=== PATIENT | female | born 1935 | race Caucasian/White ===

== ENCOUNTER → 2018-05-23 | Outpatient (CLI) | payer MEDICARE, BC, MEDICAID ==
[~2018-05-23] MED LIST: ABILIFY 5 MG TAB5 M1 PO; ACETAMINOPHEN325 M1; ACETAMINOPHEN325 M1 PO; ACIDOPHILUS1 EAC3; ACIDOPHILUS1 EAC3 PO; ADULT LOW DOSE81 MG PO; ADVAIR 100-501 EACH INH; ADVAIR 500-501 EACH; ADVAIR 500-501 EACH IH; ADVAIR 500-501 EACH INH; ADVAIR 500-501 EACH PO; ADVAIR HFA115 MCG/21 INH; ADVAIRDISKUS; ALBUTEROL INH; ALBUTEROL2.5 MG/0.1 IH; ALBUTEROL2.5 MG/31; ALBUTEROL2.5 MG/32 IH; ALDACTONE50 MG PO; AMBEREN; AMBIEN 5 MG TABL5 M1 PO; AMOXICILLIN 50500 M1 PO; AMOXICILLIN 50500 MG; ARTIFICIAL TEAR15 M1 OPHTHALMIC; ASPERCREME 1141.7 GM TOP; ASPERCREME 1141.7 GM TP; ASPIRIN EC325 M1 PO; ASPIRIN EC81 M1 PO; ASPIRIN325; ASPIRIN81 M2 PO; ATIVAN0.5 MG PO; AUGMENTIN 875875 MG PO; AZITHROMYCIN 2250 MG PO; BENADRYL ALLE12.5 MG PO; BENADRYL ALLERG25 MG PO; BENADRYL25 MG PO; BICARSIM80 MG; BICARSIM80 MG PO; BISAC-EVAC10 MG RECTAL; BISACODYL SUPP10 MG; BUDEPRION SR100 MG PO; BUDEPRION SR150 MG PO; BUPROPION HCL100 MG PO; BUPROPION XL150 MG PO; CALCIUM; CALCIUM 500 +1 EAC5; CALCIUM 500 +1 EAC6; CALCIUM 600 +1 EAC1 PO; CALCIUM 600 +1 EAC9 PO; CARVEDILOL3.125 MG PO; CARVEDILOL6.25 MG PO; CEFTIN 250 MG250 MG PO; CELEXA10 MG PO; CEPHALEXIN 500500 M3 PO; CIPROFLOXACIN500 M1 PO; CIPROFLOXACIN500 M3; CITRUCEL500 MG PO; COLACE 100 MG100 MG PO; COLACE100 MG; COLACE100 MG PO; COREG CR20 MG PO; COREG PO; COUMADIN; COUMADIN 10MG T10 M1; COUMADIN 10MG T10 M1 PO; COUMADIN 2 MG TA2 M1 PO; COUMADIN 4 MG TA4 M1 PO; COUMADIN PO; COUMADIN7.5 MG; DESYREL; DESYREL50 MG PO; DIOVAN160 MG; DIOVAN160 MG PO; DUCOLAX PO; DUONEB 2.5-0.5 M3 ML INH; EFFEXOR XR150 MG PO; EFFEXOR100 MG; EFFEXOR100 MG PO; ENOXAPARIN80 MG/0.8 SC; EYE DROP15 ML OPHTHALMIC; FERRO-TIME325 MG PO; FERROUS GLUCON325 M4; FERROUS SULFAT325 M1; FERROUS SULFAT325 M1 PO; FLEET ENEMA118 ML; FLONASE 0.05%50 MCG NASAL; FOSAMAX 70 MG T70 M1; FOSAMAX 70 MG T70 M1 PO; FOSAMAX 70 MG T70 MG PO; FUROSEMIDE 20 M20 M1 PO; FUROSEMIDE 40 M40 M1 PO; GLUCAGEN1 M2 SUBQ; GLYCOLAX POWDER17 G1 PO; GLYCOLAX17 GM; GLYCOLAX255 GM PO; IBUPROFEN 600600 M1 PO; IMDUR 30 MG TAB30 M1; IMDUR 30 MG TAB30 M1 PO; IMODIUM ADVANC1 EAC1; IMODIUM ADVANC1 EAC1 PO; IRON325 PO; ISOSORBIDE DINI30 MG; JANTOVEN7.5 MG PO; K-DUR 20 MEQ T20 MEQ; K-DUR 20 MEQ T20 MEQ PO; LASIX 20 MG TAB20 MG; LASIX 20 MG TAB20 MG PO; LASIX 40 MG TAB40 M1; LASIX 40 MG TAB40 M1 PO; LASIX 40 MG TAB40 M2 PO; LEVAQUIN 250 M250 MG PO; LEVOTHROID PO; LEVOTHYROXINE0.05 MG; LEVOXYL75 MCG PO; LOPERAMIDE 2 MG2 M1; LOPERAMIDE 2 MG2 M1 PO; LOVASTAT20; LOVASTAT20 PO; LOVASTAT40 PO; LOVASTATIN PO; LOW DOSE ASPIRI81 M1; MELATONIN3 MG PO; METAMUCIL0.52 GM PO; MEVACOR40 MG PO; MIRALAX255 GM; MIRALAX255 GM PO; MOM; MOM PO; MONTELUKAST SOD10 MG PO; MUCINEX TA600 MG/TA1 PO; MUCINEX TA600 MG/TAB; MUCINEX600 MG PO; MULTIVITAMINS; MULTIVITAMINS PO; NEPHROCAPS SOFT1 CAP; NEPHROCAPS SOFT1 CAP PO; NEXIUM40 MG; NITROQUICK0.4 MG SL; NITROSTAT0.4 M1 SL; NITROSTAT0.4 MG SL; NORVASC 5 MG TAB5 MG; NORVASC 5 MG TAB5 MG PO; NORVASC10 MG PO; OCEAN45 ML NASAL; OCTREOTIDE100 MCG/3 SC; OMEPRAZOLE PO; OMEPRAZOLE20 M2 PO; OMEPRAZOLE20 MG; OMEPRAZOLE40 MG PO; OPTIVE EYE DROP30 ML INTRAOCULR; OS-CAL 500+D C1 EACH PO; OXCARBAZEPINE600 MG; OXYBUTYNIN 5 MG5 M1 PO; OXYGEN 2L/NC; OXYGEN PRN; PHENERGAN 25 MG25 M1 PO; POTASSIUM20; POTASSIUM20 PO; PREDNISONE 10 M10 MG PO; PRILOSEC 20 MG20 MG; PRILOSEC 20 MG20 MG PO; PROAIR HFA8.5 GM; PROAIR HFA8.5 GM IH; PROAIR HFA8.5 GM INH; PROTONIX40 M2 PO; PROVENTIL; PROVENTIL HFA6.7 G1 IH; PROVENTIL HFA6.7 G1 INH; PROVENTIL INH; REFRESH5 ML INTRAOCULR; RENAL SOFTGEL1 MG; ROBITUSSIN COU118 M1 PO; SALINE NASAL SPRAY; SEE COMMENTS; SENNA S TABLET1 EACH PO; SENNA SYRU8.8 MG/5 M PO; SEROQUEL 25 MG25 MG PO; SIMETHICON CHEW80 M1 PO; SLOW MAG 64 MG; SLOW-MAG64 MG PO; SPIRIVA; SPIRIVA IH; SPIRIVA INH; SPIRONOLACTONE50 MG PO; STERILE SALINE126 ML NASAL; SYNTHROID50 MCG; SYNTHROID50 MCG PO; SYNTHROID75 MCG PO; TESSALON PERLE100 MG; TESSALON PERLE100 MG PO; TIROSINT75 MCG PO; TOPAMAX25 M1 PO; TRAMADOL 50 MG50 MG; TRAMADOL 50 MG50 MG PO; TRAZODONE HCL50 MG PO; TRILEPTAL 300300 MG; TRILEPTAL 300300 MG PO; TRILEPTAL600 MG; TRILEPTAL600 MG PO; TRIPLE ANTIBI28.4 G2 TOP; ULTRAM 50MG TAB50 MG; ULTRAM 50MG TAB50 MG PO; VALIUM2 MG; VISINE15 ML; VITAMIN C + RO500 MG PO; VITAMIN C120 GM; VITAMIN D1000 UNI1 PO; VITAMINC500 PO; WELLBUTRIN 100100 MG PO; WELLBUTRIN SR150 MG PO; WELLBUTRIN XL150 M1; WELLBUTRIN XL150 M1 PO; XENADERM OINTME30 GM; XENADERM OINTME30 GM TOP; XENADERM OINTME30 GM TP; XOPENEX0.63 MG/3 IH; ZINC CHELATE50 MG; ZPAK PO; [UNRECOGNIZED DRUG - OTHER] TOP
--- NOTE | 2018-05-23 18:27 | 2DMMODE ---
[place] [address] 2 D/M-MODE ECHOCARDIOGRAM Name: DARIN WHITNEY Room: [facility]#: [id number] Admission: 05/23/18 Attend Phys: Federico Crockett, Discharge: Date of : 35 Date of Service: 05/23/18 1827 Report #: [id number] THIS REPORT FOR: //name// APPROVED REPORT Study performed: 05/23/2018 10:25:59 EXAM: Comprehensive 2D, Doppler, and color-flow Echocardiogram Patient Location: Out-Patient Status: routine BSA: 1.74 HR: 65 bpm BP: 110/82 mmHg Other Information Study Quality: Good Indications Congestive Heart Failure Aortic valve replacement, Mitral valve replacement 2D Dimensions LVEF(%): 51.36 (>50%) IVSd: 12.83 (7-11mm) LVOT Diam: 20.91 (18-24mm) LVDd: 46.45 mm PWd: 10.89 (7-11mm) Ascending Ao: 27.67 (22-36mm) LVDs: 34.29 (25-40mm) Aortic Root: 23.16 mm Koehler's LVEF: 51.36 % Volumes Left Atrial Volume (Systole) LA ESV Index: 24.70 mL/m2 Aortic Valve AoV Peak Mahesh.: 2.32 m/s AO Peak Gr.: 21.57 mmHg LVOT Max P.02 mmHg AO Mean Gr.: 13.04 mmHg LVOT Mean P.47 mmHg LVOT Max V: 0.87 m/s AO V2 VTI: 55.13 cm LVOT Mean V: 0.56 m/s BARRY (VTI): 1.79 cm2 LVOT V1 VTI: 28.72 cm Mitral Valve MV Peak Gr.: 12.22 [place] [address] 2 D/M-MODE ECHOCARDIOGRAM Name: DARIN WHITNEY Room: [facility]#: [id number] Admission: 05/23/18 Attend Phys: Federico Crockett, Discharge: Date of : 35 Date of Service: 05/23/18 1827 Report #: [id number] MV Mean Gr.: 4.20 mmHg E/A Ratio: 1.54 MV Decel. Time: 248.63 ms MV E Max Mahesh.: 1.60 m/s MV PHT: 72.10 ms MVA (PHT): 3.05 cm2 TDI E/Lateral E': 22.86 E/Medial E': 26.67 Medial E' Mahesh.: 0.06 m/s Lateral E' Mahesh.: 0.07 m/s Pulmonary Valve PV Peak Mahesh.: 1.24 m/s PV Peak Gr.: 6.19 mmHg Tricuspid Valve RAP Estimate: 5.00 mmHg TR Peak Gr.: 33.85 mmHg RVSP: 38.85 mmHg PA Pressure: 38.85 mmHg Left Ventricle The left ventricle is normal size. There is normal LV segmental wall motion. There is normal left ventricular wall thickness. Left ventricular systolic function is normal. The left ventricular ejection fraction is within the normal range. LVEF is 55-60%. The left ventricular diastolic function is normal. Right Ventricle The right ventricle is normal size. The right ventricular systolic function is normal. Atria The left atrium size is normal. The right atrium size is normal. Aortic Valve Bioprosthetic aortic valve is present. No aortic regurgitation is present. Mild aortic stenosis. Mitral Valve There is a mechanical mitral valve. There is no mitral valve regurgitation noted. No evidence of mitral valve stenosis. Tricuspid Valve The tricuspid valve is normal in structure. Mild [place] [address] 2 D/M-MODE ECHOCARDIOGRAM Name: DARIN WHITNEY Room: [facility]#: [id number] Admission: 05/23/18 Attend Phys: Federico Crockett, Discharge: Date of : 35 Date of Service: 05/23/18 1827 Report #: [id number] Pulmonic Valve The pulmonary valve is normal in structure. There is no pulmonic valvular regurgitation. Great Vessels The aortic root is normal in size. IVC is normal in size and collapses with >50% inspiration Pericardium There is no pericardial effusion. <Conclusion> The left ventricle is normal size. There is normal left ventricular wall thickness. Left ventricular systolic function is normal. The left ventricular ejection fraction is within the normal range. LVEF is 55-60%. The left ventricular diastolic function is normal. The right ventricle is normal size. The left atrium size is normal. Bioprosthetic aortic valve is present. No aortic regurgitation is present. Mild aortic stenosis. There is a mechanical mitral valve. There is no mitral valve regurgitation noted. No evidence of mitral valve stenosis. The tricuspid valve is normal in structure. Mild tricuspid regurgitation. There is no pericardial effusion. There is normal LV segmental wall motion. <ELECTRONICALLY SIGNED> By: Carlos Eduardo Edgar MD, FACC 05/23/181826 26 26 Carlos Eduardo Edgar MD, FACC /INF
== END ==
LOC: M.CRD 10:00
DX: Z12.31 Encounter for screening mammogram for malignant neoplasm of breast (principal); I07.1 Rheumatic tricuspid insufficiency; I35.0 Nonrheumatic aortic (valve) stenosis; I11.9 Hypertensive heart disease without heart failure; Z95.2 Presence of prosthetic heart valve; Z95.3 Presence of xenogenic heart valve

== ENCOUNTER → 2018-06-28 | Outpatient (CLI) | payer MEDICARE, BC, MEDICAID ==
[2018-06-28 11:19] LABS: ALBUMIN 3.2 g/dL (3.4-5.0); CREATININE 1.5 mg/dL (0.6-1.3); POTASSIUM 5.3 mmol/L (3.5-5.1); TOTAL BILIRUBIN 0.4 mg/dL (<0.1-1.0); TOTAL PROTEIN 7.3 g/dL (6.4-8.2)
== END ==
LOC: M.ULTRA 09:58
PROVIDERS: Urology
DX: Z08 Encounter for follow-up examination after completed treatment for malignant neoplasm (principal); C64.9 Malignant neoplasm of unspecified kidney, except renal pelvis; I51.7 Cardiomegaly; J44.9 Chronic obstructive pulmonary disease, unspecified; I50.9 Heart failure, unspecified; I12.9 Hypertensive chronic kidney disease with stage 1 through stage 4 chronic kidney disease, or unspecified chronic kidney disease; N18.3 Chronic kidney disease, stage 3 (moderate); G47.33 Obstructive sleep apnea (adult) (pediatric); I48.91 Unspecified atrial fibrillation; E03.9 Hypothyroidism, unspecified

== ENCOUNTER → 2019-08-22 | Outpatient (CLI) | payer MEDICARE, BC ==
[~2019-08-22] MED LIST changes: +CEFUROXIME250 MG PO; +IBUPROFEN 400400 M2 PO
[2019-08-22 17:37] LABS: ALBUMIN 3.1 g/dL (3.4-5.0); CALCIUM 9.5 mg/dL (8.5-10.1); CREATININE 1.5 mg/dL (0.6-1.3); POTASSIUM 4.8 mmol/L (3.5-5.1); TOTAL BILIRUBIN 0.3 mg/dL (<0.1-1.0); TOTAL PROTEIN 7.4 g/dL (6.4-8.2)
== END ==
LOC: M.ULTRA 16:00 → M.LAB 16:03 → M.ULTRA 16:03 → M.RAD 16:30
PROVIDERS: Internal Medicine
DX: Z12.31 Encounter for screening mammogram for malignant neoplasm of breast (principal); N28.1 Cyst of kidney, acquired; Z85.528 Personal history of other malignant neoplasm of kidney; Z88.8 Allergy status to other drugs, medicaments and biological substances; Z85.3 Personal history of malignant neoplasm of breast; Z90.5 Acquired absence of kidney

== ENCOUNTER → 2019-09-18 | Outpatient (CLI) | payer MEDICARE, BC | LOC: M.RAD 09-07 14:00 | DX: R92.1 Mammographic calcification found on diagnostic imaging of breast (principal); Z17.1 Estrogen receptor negative status [ER-] ==

== ENCOUNTER → 2020-08-26 | Outpatient (CLI) | payer MEDICARE, BC | LOC: M.RAD 07-16 13:00 | PROVIDERS: ATTEND Internal Medicine | DX: Z12.31 Encounter for screening mammogram for malignant neoplasm of breast (principal) ==

== ENCOUNTER → 2021-10-07 | Outpatient (CLI) | payer MEDICARE, BC ==
[~2021-10-07] MED LIST changes: +LEVOTHYROXINE100 MCG PO
== END ==
LOC: M.RAD 10:19
PROVIDERS: ATTEND Internal Medicine
DX: Z12.31 Encounter for screening mammogram for malignant neoplasm of breast (principal); Z85.3 Personal history of malignant neoplasm of breast